=== PATIENT | female | born 1990 | race Caucasian/White ===

== ENCOUNTER → 2016-03-09 | Outpatient (CLI) | payer OTHER ==
[~2016-03-09] MED LIST: AZIT250T3 PO; CALNTAB PO; IBUP-232 PO; PREN1MIS11 PO; SENN1TAB PO; SPRI28TA PO
== END ==
LOC: CLAB 12:31
DX: O36.0130 Maternal care for anti-D [Rh] antibodies, third trimester, not applicable or unspecified (principal)
CPT/HCPCS: 36415; 86850; 86900; 86901; 90384; 96372; J2790

== ENCOUNTER 2016-03-16 08:06 | Emergency (ER) | payer OTHER ==
[~2016-03-16 08:06] MED LIST changes: -AZIT250T3 PO; -CALNTAB PO; -IBUP-232 PO; -SENN1TAB PO; -SPRI28TA PO
[2016-03-16 08:56] LABS: BACTERIA, URINE MOD /hpf; BLOOD, URINE NEG (NEG); GLUCOSE,URINE NEG (NEG); KETONE, URINE NEG (NEG); NITRITE,URINE NEG (NEG); SQUAMOUS EPITHELIAL CELL URINE 9 /hpf (0-5); URINE COLOR LIGHT-YELLOW (YELLW/STRAW)
[2016-03-16 08:57] LABS: COMMENT (UR) CULTURE INDICATED; CULTURE IF INDICATED CULTURE INDICATED
--- NOTE | 2016-03-16 09:22 | PD ---
HPI Chief Complaint Lower abdominal pain Date Seen: Mar 16, 2016 Time Seen: 09:16 Travel History International Travel<30 Days: No Contact w/Intl Traveler<30Days: No Known Affected Area: No History of Present Illness HPI The patient is a 25-year-old 4 para 2 AB 1 at 31-6/7 weeks gestation who reports having pain in the lower abdomen since about 2 AM. She states that the pain occurs about every 30 minutes and lasts for less than 1 minute. It does not feel like contractions. She also notes some urinary frequency without dysuria or hematuria. She denies any bleeding, rupture membranes or vaginal discharge. She feels like the pain is worse with pressure in this area or straining to have a bowel movement. Para: 2 : 4 Miscarriage: 1 History Past Medical History Medical History: Denies Significant Hx Obstetric History Obstetric History 2 term vaginal deliveries One miscarriage She [facility] care [facility] Past Surgical History Narrative Surgical Knee surgery Family History Family History: Negative Social History Alcohol Use: No Tobacco Use: Yes (smokes one half pack per day which is decreased from 2 packs per day prior to ) Substance Abuse: No Allergies-Medications (Allergen,Severity, Reaction): Coded Allergies: Penicillin (Verified Allergy, Severe, TONGUE SWELLS, 03/09/16) Home Meds Reported Medications W/O Vit A W/ Fe Carbo Pack (Citranatal 90 Dha Pack)90-1 & 300 Mg Pack1 Ea PO DAILY #6 BLISTER Ref 0 30 day supply. 01/13/16 Review of Systems Except as stated in HPI: all other systems reviewed are Neg Physical Exam Narrative GENERAL: Well-nourished, well-developed patient. SKIN: Warm and dry. HEAD: Normocephalic and atraumatic. EYES: No scleral icterus. No injection or drainage. ENT: No nasal drainage noted. Mucous membranes pink. Airway patent. NECK: Supple, trachea midline. No JVD. CARDIOVASCULAR: Regular rate and rhythm without murmurs, gallops, or rubs. RESPIRATORY: Breath sounds equal bilaterally. No accessory muscle use. ABDOMEN/GI: Abdomen soft, non-tender, bowel sounds present, no rebound, no guarding Gravid to [-] weeks size Fundal Height: [-] GENITOURINARY: External Genitalia: intact and normal in appearance BUS glands: [-] Cervix: [-] Dilatation: [-] Effacement: [-] Station: [-] Presentation: [-] Membranes: [intact or ruptured] Uterine Contractions: [-] FHT's: Category: [-] Baseline: [-] Reactive: [-] Variability: [-] Decels: [-] EXTREMITIES: No cyanosis or edema. BACK: Nontender without obvious deformity. No CVA tenderness. NEUROLOGICAL: Awake and alert. Motor and sensory grossly within normal limits. Five out of 5 muscle strength in all muscle groups. Normal speech. Data Data Vital Signs Reviewed: Yes Orders Vital Signs (Adult) .ON ADMISSION (03/16/16 08:36) ^ Labor Status (03/16/16 08:36) Urinalysis - C+S If Indicated (03/16/16 08:36) Urine Culture (03/16/16 08:15) Labs Laboratory Tests Test 03/16/16 08:15 Urine Color LIGHT-YELLOW Urine Turbidity HAZY Urine pH 7.0 Urine Specific Nora 1.002 Urine Protein NEG Urine Glucose (UA) NEG Urine Ketones NEG Urine Occult Blood NEG Urine Nitrite NEG Urine Bilirubin NEG Urine Urobilinogen LESS THAN 2.0 Urine Leukocyte Esterase NEG Urine RBC 1 Urine WBC 1 Urine Squamous Epithelial 9 Cells Urine Bacteria MOD Microscopic Urinalysis Comment CULTURE INDICATED Date/Time Procedure Status Source Growth 03/16/16 08:15 Urine Culture Received Urine Clean Catch Pending MDM Medical Record Reviewed: Yes Diagnosis Diagnosis: Primary Impression: 31 weeks gestation of Additional Impression: Urinary frequency Disposition: 01 DISCHARGE HOME Patient Instructions: General Instructions, Early Labor Signs (ED), Labor (ED), Movement (ED) Additional Instructions: keep next scheduled appointment Departure Forms: Tests/Procedures Trevor Malcolm MD Mar 16, 2016 09:22
[2016-06-16] MEDS ORDERED: SPRI28TA PO (09:24)
== END 2016-03-16 09:30 | disposition home or self-care (01) ==
LOC: HOBED 08:06
DX: O26.893 Other specified pregnancy related conditions, third trimester (principal); R35.0 Frequency of micturition; R10.30 Lower abdominal pain, unspecified; F17.200 Nicotine dependence, unspecified, uncomplicated; Z3A.31 31 weeks gestation of pregnancy
CPT/HCPCS: 59025; 81001; 87086

== ENCOUNTER 2016-04-05 15:55 | Emergency (ER) | payer OTHER ==
[~2016-04-05] VITALS: Ht 149.9 cm; Wt 84.0 kg
[2016-04-05 15:57] VITALS: BP 119/71; PULSE 89; RESP 15; TEMP 98.7; O2SAT 97
[2016-04-05] MEDS ORDERED: AZIT250T3 PO (16:46)
--- NOTE | 2016-04-05 16:50 | PD ---
HPI Chief Complaint: ENT Complaint Time Seen by Provider: 16:48 Travel History International Travel<30 days: No Contact w/Intl Traveler<30days: No Traveled to known affect area: No History of Present Illness HPI 26-year-old 34 week female presents to the emergency room for evaluation of right ear pain that started yesterday. She denies drainage but reports fullness and decreased hearing. Denies associated upper respiratory symptoms. Denies fever, chills, nausea, vomiting. Patient reports normal movement and denies vaginal discharge or bleeding. She reports anaphylactic reaction to penicillin. PFSH Past Medical History Autoimmune Disease: No Blood Disorders: No Anxiety: No Depression: No Cardiovascular Problems: No Diminished Hearing: No Genitourinary: No Musculoskeletal: No Neurologic: No Psychiatric: No Respiratory: No Sickle Cell Disease: No ?: LMP: 07/2015 : 3 Para: 2 Past Surgical History Abdominal Surgery: No Cardiac Surgery: No Ear Surgery: No Endocrine Surgery: No Eye Surgery: No Genitourinary Surgery: No Gynecologic Surgery: No Neurologic Surgery: No Oral Surgery: No Thoracic Surgery: No Other Surgery: Yes Social History Alcohol Use: No Tobacco Use: Yes Substance Use: No Allergies-Medications (Allergen,Severity, Reaction): Coded Allergies: Penicillin (Verified Allergy, Severe, TONGUE SWELLS, 04/05/16) Reported Meds & Prescriptions Reported Meds & Active Scripts Active Azithromycin 250 Mg Tab 250 Mg PO DIRECTED Take 2 tabs (500 mg) on day 1 then 1 tab daily x 4 days. Reported Citranatal 90 Dha Pack ( W/O Vit A W/ Fe Carbo Pack) 90-1 & 300 Mg Pack 1 Ea PO DAILY 30 day supply. Review of Systems Except as stated in HPI: all other systems reviewed are Neg Physical Exam Narrative GENERAL: Well-nourished, well-developed female in no acute distress. Afebrile. Ambulatory. SKIN: Warm and dry. HEAD: Normocephalic. EYES: No scleral icterus. No injection or drainage. EARS: Bilateral pinnae and external canals appear within normal limits. Left tympanic membrane unremarkable. Right tympanic membrane is erythematous, dull, bulging. No perforation. NECK: Supple, trachea midline. No JVD or lymphadenopathy. CARDIOVASCULAR: Regular rate and rhythm without murmurs, gallops, or rubs. RESPIRATORY: Breath sounds equal bilaterally. No accessory muscle use. Data Data Last Documented VS Vital Signs Date Time Temp Pulse Resp B/P Pulse Ox O2 Delivery O2 Flow Rate FiO2 04/05/16 15:57 98.7 89 15 119/71 97 MDM Medical Decision Making Medical Screen Exam Complete: Yes Emergency Medical Condition: Yes Medical Record Reviewed: Yes Differential Diagnosis Otitis media versus eustachian tube dysfunction versus cerumen impaction Narrative Course 26-year-old female presents to the emergency room for evaluation of right ear pain that started yesterday. No history of fever. She is afebrile and well appearing in the emergency room. Resting comfortably in bed. Physical exam reveals extreme erythema, dullness, and obvious effusion of the right tympanic membrane. No perforation or drainage. Left tympanic membrane is unremarkable. No associated upper respiratory symptoms. This is otitis media. Patient will be discharged with azithromycin and told to follow up with a primary care physician or return to the emergency room for worsening symptoms. She understands and agrees to plan. Diagnosis Primary Impression: Otitis media Qualified Code: H66.001 - Acute suppurative otitis media of right ear without spontaneous rupture of tympanic membrane, recurrence not specified Referrals: Primary Care Physician Patient Instructions: General Instructions, Otitis Media (ED) Additional Instructions: Rest and drink plenty of fluids. Take Azithromycin as directed, until gone. Follow-up with PCP. Return for worsening symptoms. Med/Other Pt SpecificInfo: Prescription(s) given Scripts Azithromycin 250 Mg [id number] Mg PO DIRECTED #6 TAB Ref 0 Take 2 tabs (500 mg) on day 1 then 1 tab daily x 4 days. Prov:Eric Bourgeois MD 04/05/16 Disposition: 01 DISCHARGE HOME Condition: Stable Janay Garland Apr 05, 2016 16:50
[2016-04-05] MEDS ORDERED: CALNTAB PO (16:56)
[2016-06-16] MEDS ORDERED: SPRI28TA PO (09:24)
== END 2016-04-05 17:23 | disposition home or self-care (01) ==
LOC: NEPB 15:55
DX: O26.893 Other specified pregnancy related conditions, third trimester (principal); H66.91 Otitis media, unspecified, right ear; Z72.0 Tobacco use; Z3A.34 34 weeks gestation of pregnancy
CPT/HCPCS: 99282

== ENCOUNTER 2016-04-29 03:51 | Emergency (ER) | payer OTHER ==
[~2016-04-29 03:51] MED LIST changes: +CALNTAB PO; -PREN1MIS11 PO
--- NOTE | 2016-04-29 05:08 | PD ---
HPI Chief Complaint Contraction pain Date Seen: Apr 29, 2016 Travel History International Travel<30 Days: No Contact w/Intl Traveler<30Days: No Known Affected Area: No History of Present Illness HPI Patient is 26-year-old white female A1 at 38 weeks followed for [facility] who presents complaining of contraction pain. She was also uncertain of her water leakage or not she coughed and had some wet underclothes and wasn't sure what was happening there, denies bleeding, baby is active heart rate tracing is reactive and she is royce every 3-4 minutes Para: 2 : 4 Miscarriage: 1 History Obstetric History Obstetric History 2 vaginal deliveries Social History Alcohol Use: No Tobacco Use: No Substance Abuse: No Allergies-Medications (Allergen,Severity, Reaction): Coded Allergies: Penicillin (Verified Allergy, Severe, TONGUE SWELLS, 04/27/16) Home Meds Reported Medications Vitamin (Calna)1 Tab Tab1 Tab PO DAILY 04/05/16 Review of Systems General / Constitutional: No: Fever, Weight Gain, Chills, Other Eyes: No: Diploplia, Blurred Vision, Visual changes, Pain, Photophobia HENT: No: Headaches, Vertigo, Lightheadedness Cardiovascular: No: Irregular Rhythm, Chest Pain or Discomfort, Palpitations, Tachycardia, Syncope, Varicosities, Edema, Cyanosis Respiratory: No: Cough, Short of Breath, Other Gastrointestinal: No: Nausea, Vomiting, Diarrhea Genitourinary: No: Decreased Urinary Output, Oliguria Musculoskeletal: No: Limited ROM, Weakness, Cramping, Edema, Pain Skin: No Rash, No Itching, No Dryness, No Lumps, No Change in Pigmentation, No Change in Nails, No Alopecia, No Lesions Neurologic: No: Weakness, Dizziness, Syncope, Focal Abnormalities, Coordination Problem, Headache, Slurred Speech, Seizures Psychiatric: No: Depression, Suicidal Ideations, Homicidal Ideation Endocrine: No: Heat Intolerance, Cold Intolerance, Polydipsia, Polyuria, Other Physical Exam Narrative GENERAL: Well-nourished, well-developed patient. SKIN: Warm and dry. HEAD: Normocephalic and atraumatic. EYES: No scleral icterus. No injection or drainage. ENT: No nasal drainage noted. Mucous membranes pink. Airway patent. NECK: Supple, trachea midline. No JVD. CARDIOVASCULAR: Regular rate and rhythm without murmurs, gallops, or rubs. RESPIRATORY: Breath sounds equal bilaterally. No accessory muscle use. BREASTS: Bilateral exam showed no masses , no retractions, no nipple discharge. ABDOMEN/GI: Abdomen soft, non-tender, bowel sounds present, no rebound, no guarding Gravid to [38-] weeks size Fundal Height: [-38] GENITOURINARY: External Genitalia: intact and normal in appearance BUS glands: [-] Cervix: [-] Dilatation: [1-] Effacement: [60-] Station: [-2] Presentation: [-vtx] Membranes: [intact ] amnio sure is negative Uterine Contractions: [-q 3 min] FHT's: Category: [-1] Baseline: [110-] Reactive: [yes-] Variability: [mod-] Decels: [-none] EXTREMITIES: No cyanosis or edema. BACK: Nontender without obvious deformity. No CVA tenderness. NEUROLOGICAL: Awake and alert. Motor and sensory grossly within normal limits. Five out of 5 muscle strength in all muscle groups. Normal speech. Data Data Labs Amnio sure negative History of positive VDRL in her records and she is GBS positive MDM Medical Record Reviewed: Yes Interpretation(s) Patient is a 26-year-old white female at 38 weeks presents complaining of contraction pain. She is royce every 3-4 minutes her cervix is only 1 cm 60% -2, she had a negative amnio sure even though it looked like she had a lot of wetness in the lower vagina. The heart rate is reactive Plan Plan to discharge patient to home and return for increasing pain or further fluid leakage or bleeding, etc. Diagnosis Diagnosis: Primary Impression: Uterine contractions during Disposition: DISCHARGE HOME Condition: Stable Joel Anna II, MD Apr 29, 2016 05:08
[2016-06-16] MEDS ORDERED: SPRI28TA PO (09:24)
== END 2016-04-29 07:00 | disposition home or self-care (01) ==
LOC: HOBED 03:51
DX: O26.93 Pregnancy related conditions, unspecified, third trimester (principal); Z3A.38 38 weeks gestation of pregnancy
CPT/HCPCS: 84112; 96372; J3010

== ENCOUNTER 2016-04-29 23:18 | Inpatient (IN) | payer OTHER ==
[~2016-04-29] VITALS: Ht 149.9 cm; Wt 83.0 kg
[2016-04-30] VITALS (44 sets, daily range): BP systolic 74–133; BP diastolic 36–72; PULSE 74–214; RESP 16–18; TEMP 97.9–98.9
[2016-04-30] MEDS ORDERED: LACTATED RINGER'S 1000 ML INJ 1,000 ML IV PRN (00:33)
[2016-04-30] MEDS ORDERED: LACTATED RINGER'S 1000 ML INJ 1,000 ML IV SCH (00:33)
[2016-04-30] MEDS ORDERED: SODIUM CHLORID 0.9% 500 ML INJ 500 ML IV PRN (00:45)
[2016-04-30] MEDS ORDERED: MINERAL OIL 10 ML VIAL TOPICAL PRN (00:45)
[2016-04-30] MEDS ORDERED: OXYTOCIN 30 UNITS-500ML PREMIX 500 ML IV ONE (00:45)
[2016-04-30] MEDS ORDERED: LIDOCAINE HCL 1% 50 ML VIAL I-DERMAL PRN (00:45)
[2016-04-30] MEDS ORDERED: LIDOCAINE HCL 1% 50 ML VIAL INFIL PRN (00:45)
[2016-04-30] MEDS ORDERED: CITRIC ACID-SODIUM CITRATE LIQ 30 ML UDC PO SCH (00:45)
[2016-04-30] MEDS ORDERED: SODIUM CHLOR 0.9% 1000 ML INJ 1,000 ML IV PRN (00:53)
--- NOTE | 2016-04-30 00:59 | HHI.HP ---
History & Physical H&P OB ED Note (Detail) Patient Name: Saurav Lopez Unit Number: [id number] Date of : 1990 Patient Status: Registered Emergency Room Attending Doctor: Sandra Thomas MD HPI HPI Chief Complaint contractions Date Seen: Apr 30, 2016 Travel History International Travel<30 Days: No Contact w/Intl Traveler<30Days: No History of Present Illness HPI Mrs. Lopez is a 26 yo 38 2/7 week patient of [facility] who presents complaining of contractions. She reports the contractions began approximately 30 hours ago; patient reports that these have gradually increased in severity. Patient was seen approximately 1 day ago for contractions, however was discharged home due to being in early, latent phase labor. Patient does not think that she has ruptured membranes, but states that she's been urinating frequently. Patient denies vaginal bleeding. Patient reports normal movement. Patient does not report headache, vision changes, shortness of breath, leg swelling, fever/chills, or dysuria. Patient reports that she is GBS positive; patient reports severe penicillin allergy in which her throat swells. Patient states that she has had unremarkable history with reassuring ultrasound at approximately 20 weeks gestation. Per review of records from [facility]: RPR positive 10/01/2016, treated. Patient had elevated 1 hour glucose testing but did not obtain 3 hour testing. . Initial TSH 0.24; follow-up TSH/free T4 wnl. Blood type O negative. Smokes 1/2 PPD Para: 2 : 4 History (Limited) History Past Medical History Narrative Medical Positive VDRL per report from [facility] 10/01/2016; treated Medical History: Denies Significant Hx Obstetric History Obstetric History 2 prior full-term vaginal deliveries Past Surgical History Surgical History: No Previous Surgery Family History Family History: Negative Social History Alcohol Use: No Tobacco Use: 1/2 ppd Substance Abuse: No Allergies-Medications Allergies-Medications (Allergen,Severity, Reaction): Coded Allergies: Penicillin (Verified Allergy, Severe, TONGUE SWELLS, 04/27/16) Home Meds Reported Medications Vitamin (Calna)1 Tab Tab1 Tab PO DAILY 04/05/16 ROS Review of Systems General / Constitutional: No: Fever, Chills Eyes: No: Blurred Vision HENT: No: Headaches Cardiovascular: No: Chest Pain or Discomfort Respiratory: No: Short of Breath Gastrointestinal: Abdominal Pain (with contractions), No: Nausea, Vomiting Genitourinary: Frequency, No: Dysuria Physical Exam Physical Exam Temperature 98.0 F Respiratory rate 20 MHR 102 BP 121/72 Narrative GENERAL: Well-nourished, well-developed patient. SKIN: Warm and dry. HEAD: Normocephalic and atraumatic. EYES: No scleral icterus. No injection or drainage. ENT: No nasal drainage noted. Mucous membranes pink. Airway patent. NECK: Supple, trachea midline. No JVD. CARDIOVASCULAR: Regular rate and rhythm without murmurs; normal peripheral perfusion RESPIRATORY: Breath sounds equal bilaterally. No accessory muscle use. ABDOMEN/GI: Abdomen soft, non-tender, bowel sounds present, no rebound, no guarding Gravid; vertex presentation EXTREMITIES: No cyanosis or edema. NEUROLOGICAL: Awake and alert. Motor and sensory function grossly within normal limits. GENITOURINARY: Performed by nursing staff External Genitalia: intact and normal in appearance Cervix: Dilatation: 5 Effacement: 80% Station: -2 Presentation: Vertex Membranes: Intact Uterine Contractions: Every 35 minutes FHT's: Category: 1 Baseline: 120 Reactive: Y Variability: Moderate Decels: None Data Data Data Vital Signs Reviewed: Yes Orders Admit To Inpatient (04/30/16 ) Vital Signs (Adult) .Per protocol (04/30/16 00:33) ^ Heart (04/30/16 00:33) ^ Amnioinfusion (04/30/16 00:33) Urinary Catheter Management .ONCE (04/30/16 00:33) Lactated Ringer's 1000 Ml Inj (Lr 1000 M (04/30/16 00:33) Lactated Ringer's 1000 Ml Inj (Lr 1000 M (04/30/16 00:33) Sodium Chlorid 0.9% 500 Ml Inj (Ns 500 M (04/30/16 00:45) Sodium Chlor 0.9% 1000 Ml Inj (Ns 1000 M (04/30/16 00:53) Lidocaine 1% Inj (50 Ml) (Xylocaine 1% I (04/30/16 00:45) Citric Acid-Sodium Citrate Liq (Bicitra (04/30/16 00:45) Fentanyl Inj (Fentanyl Inj) (04/30/16 00:45) Fentanyl Inj (Fentanyl Inj) (04/30/16 00:45) Clindamycin Inj (Cleocin Inj) (04/30/16 02:45) Complete Blood Count With Diff (04/30/16 00:33) Hold Clot (04/30/16 00:33) Abo/Rh Blood Type (04/30/16 00:33) Urinalysis - C+S If Indicated (04/30/16 00:33) Resp Oxygen Non Rebreathe Mask (04/30/16 ) ^ Epidural / Intrathecal Infus (04/30/16 00:33) Oxytocin 30 Units-500ml Premix (Pitocin (04/30/16 00:45) Lidocaine 1% Inj (50 Ml) (Xylocaine 1% I (04/30/16 00:45) Light Mineral Oil (Muri-Lube Oil) (04/30/16 00:45) Inpatient Certification (04/30/16 ) MDM MDM Medical Record Reviewed: Yes Narrative Course / MDM 26 yo 38 2/7 week patient Assessment -Category 1 rhythm -Cervix 5/80%/-2 -GBS positive; allergic to penicillin -O- blood type -Requests epidural Plan Admit for labor and delivery Continue EFM Start LR Routine labs: blood typing, UA Plan for epidural Clindamycin for GBS PPX Will check RPR titers (Diego Jara MD R2) H&P I rounded on the patient. I rounded with the resident. I reviewed the resident' s assessment and plan of care for this patient. I am in agreement with the plan of care for this patient. (Sandra Thomas MD) Diego Jara MD R2 Apr 30, 2016 00:59 Sandra Thomas MD Apr 30, 2016 10:23
[2016-04-30] MEDS ORDERED: fentaNYL 2MCG-BUPIV 0.125% INJ 100 ML ONE (01:03)
[2016-04-30] MEDS ORDERED: ePHEDrine/NS 25 MG/5 ML SYR ONE (01:03)
[2016-04-30 01:13] LABS: AUTOMATED NEUTROPHIL # 17.7 TH/MM3 (1.8-7.7); BASOPHIL # 0.1 TH/MM3 (0-0.2); BASOPHIL % 0.3 % (0.0-2.0); EOSINOPHIL # 0.3 TH/MM3 (0-0.4); EOSINOPHIL % 1.3 % (0.0-4.0); HEMATOCRIT 33.2 % (35.0-46.0); HEMO FLAGS DIFF FINAL; LYMPHOCYTE # 2.9 TH/MM3 (1.0-4.8); MEAN CELL VOLUME 87.1 FL (80.0-100.0); MEAN CORPUSCULAR HEMOGLOBIN 28.7 PG (27.0-34.0); MEAN CORPUSCULAR HGB CONC 32.9 % (32.0-36.0); MONO % 5.9 % (0.0-8.0); NEUT % 79.5 % (16.0-70.0); PLATELET COUNT 317 TH/MM3 (150-450); RED BLOOD COUNT 3.81 MIL/MM3 (4.00-5.30); RED CELL DISTRIBUTION WIDTH 15.5 % (11.6-17.2); WHITE BLOOD COUNT 22.3 TH/MM3 (4.0-11.0)
[2016-04-30 02:05] LABS: BACTERIA, URINE RARE /hpf; BLOOD, URINE SMALL (NEG); GLUCOSE,URINE NEG (NEG); KETONE, URINE 150 mg/dL (NEG); MUCUS URINE FEW /lpf (OCC); NITRITE,URINE NEG (NEG); PH, URINE 6.5 (5.0-8.5); RENAL EPITHELIAL CELLS <1 /hpf; SQUAMOUS EPITHELIAL CELL URINE 6 /hpf (0-5); TRANSITIONAL EPI CELLS, URINE <1 /hpf; URINE COLOR YELLOW (YELLW/STRAW)
[2016-04-30 02:06] LABS: COMMENT (UR) CULTURE INDICATED; CULTURE IF INDICATED CULTURE INDICATED
[2016-04-30] MEDS ORDERED: ePHEDrine/NS 25 MG/5 ML SYR IV PRN (02:30)
[2016-04-30] MEDS ORDERED: CLINDAMYCIN INJ 900 MG in SODIUM CHLORIDE 0.9% INJ 100 ML IV SCH (02:45)
[2016-04-30] MEDS ORDERED: NO SYSTEM NARCOTICS XX PRN (03:00)
[2016-04-30] MEDS ORDERED: fentaNYL 2MCG-BUPIV 0.125% 100 ML EPIDURAL SCH (03:00)
[2016-04-30] MEDS ORDERED: DO NOT ADMINISTER ANTICOAGULANTS XX PRN (03:00)
[2016-04-30 03:05] LABS: AMPHETAMINE, URINE NEG (NEG); BARBITURATES, URINE NEG (NEG); COCAINE, URINE NEG (NEG)
[2016-04-30] MEDS ORDERED: ALUMINUM/MAGNESIUM/SIMETH 30 ML CUP PO PRN (03:30)
[2016-04-30] MEDS ORDERED: ZOLPIDEM TARTRATE 5 MG TAB PO PRN (03:30)
[2016-04-30] MEDS ORDERED: BENZOCAINE 20% TOPICAL SPRAY 60 ML CAN TOPICAL PRN (03:30)
[2016-04-30] MEDS ORDERED: ACETAMINOPHEN 325 MG TAB PO PRN (03:30)
[2016-04-30] MEDS ORDERED: ONDANSETRON ODT 4 MG TAB PO PRN (03:30)
[2016-04-30] MEDS ORDERED: SODIUM CHLORIDE 0.9% FLUSH 5 ML FLUSH IV PRN (03:30)
[2016-04-30] MEDS ORDERED: oxyCODONE/ACETAMINOPHEN 5 MG/325 MG TAB PO PRN (03:30)
[2016-04-30] MEDS ORDERED: WITCH HAZEL 50%/GLYCERIN 12.5% 40 PAD JAR TOPICAL PRN (03:30)
--- NOTE | 2016-04-30 04:08 | PD.OB.DELI ---
Delivery Date: Apr 30, 2016 Episiotomy: None Vaginal Delivery: Normal Presentation: Occiput anterior Nuchal Cord: x1 Delayed cord clamping (45 sec): No Infant: Male One Minute : 1 Five Minute : 6 Weight: [id number] Infant Care: Suctioned, Other Placenta: Spontaneous delivery, Intact, 3 vessel cord Additional Information heart tones with moderate variability and positive accelerations after placement of the epidural the patient underwent artificial rupture of membranes however there was minimal fluid and no meconium was seen. The patient progressed to 9 cm with a lot of pressure and pushing the patient delivered. At the time of delivery there was a moderately tight nuchal cord and meconium fluid seen behind the baby unable to push the cord over the head however it slipped over the shoulder and the baby spontaneously delivered no stimulation was done as the baby was meconium stained segment of cord was obtained for a cord pH the cord was then doubly clamped and cut and the infant rapidly handed over to the waiting nursery staff. Unable to obtain adequate pH from the segment of cord Placenta delivered spontaneously and intact and the membranes were green it was sent to pathology for evaluation. No lacerations Estimated blood loss less than 300 cc Uterus was firm Nursing staff did visualize the cords and no meconium was seen below the cords. Baby is presently pink active and is staying with the mother has not been transferred to the NICU Sandra Thomas MD Apr 30, 2016 04:08
[2016-04-30] MEDS ORDERED: SODIUM CHLORIDE 0.9% FLUSH 5 ML FLUSH IV SCH (09:00)
[2016-04-30] MEDS: IBUPROFEN 600 MG TAB PO PRN ×3 (10:05→23:07)
[2016-04-30 13:17] LABS: RAPID PLASMA REAGIN SCREEN REACTIVE (NON-REACTVE)
--- NOTE | 2016-04-30 15:34 | HHI.OB ---
Subjective Remarks 26 year old PPD 0 after vaginal delivery early this morning. Received call from nurse alerting me about positive RPR result both in mom and in baby. RPR titer is 1:8. She tested positive for RPR, along with her significant other , in September 2015 (1:64 at that time) with [facility]. She was given a 14 day course of Doxycycline at that time. She missed two days of dosing but resumed dosing and completed the course. Her significant other also was treated with penicillin. She is sexually monogamous with her significant other, but does not use protection. She has not had any symptoms of syphilis, including no generalized rash, mucosal or vaginal ulcers, gummas, neurological symptoms, etc. Regarding post- care, she has minimal lochia, is ambulating, pain is well controlled, and she intends to breastfeed. Objective Vitals/I&O Vital Signs Date Time Temp Pulse Resp B/P Pulse Ox O2 Delivery O2 Flow Rate FiO2 04/30/16 08:05 97.9 16 04/30/16 08:05 77 105/68 04/30/16 06:37 98.6 77 18 104/57 04/30/16 05:45 18 04/30/16 05:00 18 04/30/16 04:46 80 109/52 04/30/16 04:45 18 04/30/16 04:30 18 04/30/16 04:30 80 108/50 04/30/16 04:15 74 99/56 04/30/16 04:11 99 96/67 04/30/16 04:08 18 04/30/16 04:00 18 04/30/16 04:00 77 74/39 04/30/16 03:49 162 75/36 04/30/16 03:46 106 90/38 04/30/16 03:42 18 04/30/16 03:31 114 88/57 04/30/16 03:24 18 04/30/16 03:24 18 04/30/16 03:15 18 04/30/16 03:15 100 110/53 04/30/16 03:00 18 04/30/16 03:00 18 04/30/16 02:50 95 04/30/16 02:50 95 04/30/16 02:46 90 111/67 04/30/16 02:45 83 04/30/16 02:30 18 04/30/16 02:26 104 83/53 04/30/16 02:25 91 04/30/16 02:21 112 119/64 04/30/16 02:20 107 04/30/16 02:16 93 103/46 04/30/16 02:15 88 04/30/16 02:14 18 04/30/16 02:11 214 97/59 04/30/16 02:10 99 04/30/16 02:05 100 105/65 04/30/16 02:05 97 04/30/16 02:00 95 18 113/62 04/30/16 02:00 95 04/30/16 01:55 98 109/64 04/30/16 01:55 101 04/30/16 01:50 87 04/30/16 01:50 96 109/51 04/30/16 01:45 90 04/30/16 01:45 90 116/61 04/30/16 01:43 18 04/30/16 01:40 101 115/65 04/30/16 01:40 101 04/30/16 01:36 95 114/69 04/30/16 01:35 101 04/30/16 01:32 103 133/40 04/30/16 01:30 104 04/30/16 01:30 18 04/30/16 01:27 99 128/72 Objective Remarks GENERAL: Resting in bed HEENT: No oral ulcers Skin: No generalized rashes, no rashes on the palms or soles CARDIOVASCULAR: Regular rate and rhythm without murmurs, gallops, or rubs. RESPIRATORY: Breath sounds equal bilaterally. No accessory muscle use. ABDOMEN/GI: Abdomen soft, non-tender. Fundus: Firm, non-tender at umbilicus. GENITOURINARY: Light to moderate bleeding. No genital ulcers EXTREMITIES: No cyanosis or edema, non-tender, without signs of DVT. Medications and IVs Current Medications Medications (Trade) Dose Ordered Sig/Prasanth Route Start Time Stop Time Status Last Admin (Cleocin Inj/NS Inj) 106 ml @ 200 mls/hr Q8H IV 04/30/16 02:45 04/30/16 02:25 Miscellaneous Information No systemic narcotics to be given except... UNSCH PRN XX 04/30/16 03:00 05/01/16 02:59 Miscellaneous Information DO NOT ADMINISTER ANY ANTICOAGUL... UNSCH PRN XX 04/30/16 03:00 05/01/16 02:59 (fentaNYL 2MCG-BUPIV 0.125% INJ) 100 ml @ 0 mls/hr TITRATE EPIDURAL 04/30/16 03:00 (ePHEDrine/NS 25 MG/5 ML SYR) 10 mg UNSCH PRN IV 04/30/16 02:30 05/01/16 02:29 (NS Flush) 2 ml BID IV 04/30/16 09:00 (NS Flush) 2 ml UNSCH PRN IV 04/30/16 03:30 (Tylenol) 650 mg Q4H PRN PO 04/30/16 03:30 (Motrin) 600 mg Q6H PRN PO 04/30/16 03:30 04/30/16 10:05 (Percocet 5-325 Mg) 1 tab Q4H PRN PO 04/30/16 03:30 (Percocet 5-325 Mg) 2 tab Q4H PRN PO 04/30/16 03:30 (Americaine 20% Top Spr) 1 spray Q4H PRN TOPICAL 04/30/16 03:30 (Tucks Pads) 1 applic QID PRN TOPICAL 04/30/16 03:30 (Fiona-Colace) 2 tab Q12H PRN PO 04/30/16 03:30 (Ambien) 5 mg HS PRN PO 04/30/16 03:30 (M-M-R Ii Inj) 0.5 ml ONCE ONCE SQ 04/30/16 16:00 04/30/16 16:01 (Boostrix Inj) 0.5 ml ONCE ONCE IM 04/30/16 16:00 04/30/16 16:01 (Mag-Al Plus Susp Liq) 15 ml Q8H PRN PO 04/30/16 03:30 (Zofran Odt) 4 mg Q6H PRN PO 04/30/16 03:30 (Vibramycin) 100 mg BID PO 04/30/16 16:00 Assessment/Plan Assessment and Plan 26 year old PPD 0 after vaginal delivery early this morning, with positive RPR and titer of 1:8. RPR was 1:16 in December, and 1:64 in September 2015 with positive FTA-ABS at that time. HIV test negative in November 2015. - Because the titers are more than fourfold decreased since her treatment with Doxycycline back in September 2015 (confirmed [facility] to [facility]), and because she is asymptomatic, there is no indication for treatment. - Regarding post- care, continue with Ibuprofen for pain control, monitor amount of lochia, savings counselor on control options. Discussed with Sandro Sanchez MD R2 Apr 30, 2016 15:34 - Doxycycline poses a theoretical risk to teeth development for baby through . However, there is no absolute contraindication to while on doxycycline and benefits of may outweigh the risks. Will defer to pediatric team on . - Regarding post- care, continue with Ibuprofen for pain control, monitor amount of lochia, savings counselor on control options. Discussed with Sandro Sanchez MD R2 Apr 30, 2016 15:34
[2016-04-30] MEDS ORDERED: DOXYCYCLINE HYCLATE 100 MG CAP PO SCH (16:00)
[2016-04-30] MEDS: MEASLES, MUMPS, RUBELLA VACCINE 0.5 ML VIAL SQ ONE (16:00)
[2016-04-30] MEDS ORDERED: DIPHTH/TETANUS/ACEL PERTUSSIS (BOOSTER) 0.5 ML VIAL/PFS IM ONE (16:00)
[2016-05-01] MEDS: DOCUSATE SODIUM 50 MG/SENNA 8.6 MG TAB PO PRN ×2 (03:45→18:10)
[2016-05-01] MEDS: IBUPROFEN 600 MG TAB PO PRN ×3 (03:45→18:10)
[2016-05-01] MEDS: oxyCODONE/ACETAMINOPHEN 5 MG/325 MG TAB PO PRN ×2 (03:45→10:51)
[2016-05-01] MEDS: MEASLES, MUMPS, RUBELLA VACCINE 0.5 ML VIAL SQ ONE (06:27)
[2016-05-01 08:30] VITALS: BP 114/55; PULSE 64; RESP 18; TEMP 98.2
--- NOTE | 2016-05-01 08:50 | HHI.OB ---
Subjective Remarks 26 year old PPD 1 after vaginal delivery early yesterday morning. She has minimal lochia. She is breast and formula feeding, encouraging exclusive . She is ambulating. She is uncertain about control, discussed options. She plans to follow up with [facility] for post- care. Pain is well-controlled. Objective Vitals/I&O Vital Signs Date Time Temp Pulse Resp B/P Pulse Ox O2 Delivery O2 Flow Rate FiO2 05/01/16 04:45 18 05/01/16 00:06 18 05/01/16 00:06 18 04/30/16 20:16 98.9 88 18 108/69 Objective Remarks GENERAL: Resting in bed HEENT: No oral ulcers Skin: No generalized rashes, no rashes on the palms or soles CARDIOVASCULAR: Regular rate and rhythm without murmurs, gallops, or rubs. RESPIRATORY: Breath sounds equal bilaterally. No accessory muscle use. ABDOMEN/GI: Abdomen soft, non-tender. Fundus: Firm, non-tender at umbilicus. GENITOURINARY: Light to moderate bleeding. No genital ulcers EXTREMITIES: No cyanosis or edema, non-tender, without signs of DVT. Medications and IVs Current Medications Medications (Trade) Dose Ordered Sig/Prasanth Route Start Time Stop Time Status Last Admin (fentaNYL 2MCG-BUPIV 0.125% INJ) 100 ml @ 0 mls/hr TITRATE EPIDURAL 04/30/16 03:00 (NS Flush) 2 ml BID IV 04/30/16 09:00 (NS Flush) 2 ml UNSCH PRN IV 04/30/16 03:30 (Tylenol) 650 mg Q4H PRN PO 04/30/16 03:30 04/30/16 23:06 (Motrin) 600 mg Q6H PRN PO 04/30/16 03:30 05/01/16 03:45 (Percocet 5-325 Mg) 1 tab Q4H PRN PO 04/30/16 03:30 05/01/16 03:45 (Percocet 5-325 Mg) 2 tab Q4H PRN PO 04/30/16 03:30 (Americaine 20% Top Spr) 1 spray Q4H PRN TOPICAL 04/30/16 03:30 (Tucks Pads) 1 applic QID PRN TOPICAL 04/30/16 03:30 (Fiona-Colace) 2 tab Q12H PRN PO 04/30/16 03:30 05/01/16 03:45 (Ambien) 5 mg HS PRN PO 04/30/16 03:30 (Mag-Al Plus Susp Liq) 15 ml Q8H PRN PO 04/30/16 03:30 (Zofran Odt) 4 mg Q6H PRN PO 04/30/16 03:30 (Flu (Quadrivalent) Vaccine Inj) 0.5 ml ONCE ONCE IM 05/01/16 09:00 05/01/16 09:01 05/01/16 06:25 Assessment/Plan Assessment and Plan 26 year old PPD 0 after vaginal delivery early this morning, with positive RPR and titer of 1:8. RPR was 1:16 in December, and 1:64 in September 2015 with positive FTA-ABS at that time. HIV test negative in November 2015. Regarding post- care, she is doing well. - Because the titers are more than fourfold decreased since her treatment with Doxycycline back in September 2015 (confirmed by call to the Health Department), and because she is asymptomatic, there is no indication for treatment. - Continue with Ibuprofen for pain control. - Monitor amount of lochia. 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 - Encourage exclusive . - Will follow with [facility] for post- care. Discussed with Sandro Sanchez MD R2 May 01, 2016 08:50
[2016-05-01] MEDS ORDERED: INFLUENZA VIRUS VACCINE (QUADRIVALENT) 0.5 ML SYR IM ONE (09:00)
[2016-05-01 20:00] VITALS: BP 103/63; PULSE 64; RESP 18; TEMP 98.1
[2016-05-02] MEDS: IBUPROFEN 600 MG TAB PO PRN ×2 (00:36→08:17)
[2016-05-02] MEDS: oxyCODONE/ACETAMINOPHEN 5 MG/325 MG TAB PO PRN ×2 (00:36→08:17)
[2016-05-02 08:00] VITALS: BP 119/75; PULSE 74; RESP 18; TEMP 98
--- NOTE | 2016-05-02 08:35 | PD.CIRC ---
Circumcision Procedure Note Procedure Date: May 02, 2016 Procedure: Circumcision Pre-procedure diagnosis: circumcision Post-procedure diagnosis: circumcision Informed Consent: The risks, benefits, indications, potential complications, and alternatives were explained to the patient/family and informed consent obtained. The baby was brought to the procedure room where a time-out was done to ID the patient and the procedure. Performing Physician: Sandra Portillo Anesthesia used: 1% lidocaine injected Device used: Gomco 1.3 Description: The baby was prepped and draped in a sterile fashion. The procedure followed standard technique. The baby tolerated the procedure well without complication. Estimated blood loss: minimal Specimen: No Sandra Thomas MD May 02, 2016 08:35
--- NOTE | 2016-05-02 09:03 | HHI.OB ---
Subjective Post Day: 2 Remarks Pt seen and examined this morning. day # 2 AFVSS overnight. Decreased lochia. Denies dysuria. No breast tenderness. She is feeding the baby via breast and bottle. Appetite good. No nausea or vomiting. Has had BM. Ambulating well. Denies calf pain or shortness of breath. Otherwise, she is doing well this morning and has no other concerns. Objective Vitals/I&O Vital Signs Date Time Temp Pulse Resp B/P Pulse Ox O2 Delivery O2 Flow Rate FiO2 05/01/16 20:00 98.1 64 18 103/63 Objective Remarks GENERAL: Resting in bed HEENT: No oral ulcers Skin: No generalized rashes, no rashes on the palms or soles CARDIOVASCULAR: Regular rate and rhythm without murmurs, gallops, or rubs. RESPIRATORY: Breath sounds equal bilaterally. No accessory muscle use. ABDOMEN/GI: Abdomen soft, non-tender. Fundus: Firm, non-tender at umbilicus. GENITOURINARY: Light to moderate bleeding. No genital ulcers EXTREMITIES: No cyanosis or edema, non-tender, without signs of DVT. Medications and IVs Current Medications Medications (Trade) Dose Ordered Sig/Prasanth Route Start Time Stop Time Status Last Admin (fentaNYL 2MCG-BUPIV 0.125% INJ) 100 ml @ 0 mls/hr TITRATE EPIDURAL 04/30/16 03:00 (NS Flush) 2 ml BID IV 04/30/16 09:00 (NS Flush) 2 ml UNSCH PRN IV 04/30/16 03:30 (Tylenol) 650 mg Q4H PRN PO 04/30/16 03:30 04/30/16 23:06 (Motrin) 600 mg Q6H PRN PO 04/30/16 03:30 05/02/16 08:17 (Percocet 5-325 Mg) 1 tab Q4H PRN PO 04/30/16 03:30 05/02/16 08:17 (Percocet 5-325 Mg) 2 tab Q4H PRN PO 04/30/16 03:30 05/01/16 18:10 (Americaine 20% Top Spr) 1 spray Q4H PRN TOPICAL 04/30/16 03:30 (Tucks Pads) 1 applic QID PRN TOPICAL 04/30/16 03:30 (Fiona-Colace) 2 tab Q12H PRN PO 04/30/16 03:30 05/01/16 18:10 (Ambien) 5 mg HS PRN PO 04/30/16 03:30 (Mag-Al Plus Susp Liq) 15 ml Q8H PRN PO 04/30/16 03:30 (Zofran Odt) 4 mg Q6H PRN PO 04/30/16 03:30 Assessment/Plan Assessment and Plan 26 year old PPD 2 s/p vaginal delivery. -Positive RPR, patient was adequately treated with doxycycline in 09/2015, confirmed by the health department. Currently asymptomatic. No indication for treatment at this time -Continue routine care. -Percocet and Motrin PRN pain. -Encouraged OOB. Advised pelvic rest for 6 wks. 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 -Anticipate discharge later today Discussed with Isha Bryant MD R2 May 02, 2016 09:03
[2016-05-02] MEDS ORDERED: IBUP-232 PO (09:11)
[2016-05-02] MEDS ORDERED: SENN1TAB PO (09:11)
--- NOTE | 2016-05-02 09:14 | HHI.DCPOC ---
Discharge Care Plan Diagnosis: (1) Vaginal delivery Report Symptoms to Your Doctor -Temperate above 100.5 degrees -Redness, of incision or excessive or foul smelling drainage -Unusual pain or calf pain -Increased vaginal bleeding -Painful or difficulty urinating -Feelings of extreme sadness or anxiety after 2 weeks Goals to Promote Your Health * To prevent worsening of your condition and complications * To maintain your health at the optimal level Directions to Meet Your Goals Take your medications as prescribed Follow your dietary instruction Follow activity as directed Ensure plenty of rest for recovery Drink fluids for hydration Keep your appointments as scheduled Take your immunizations and boosters as scheduled If your symptoms worsen call your PCP, if no PCP go to Urgent Care Center or Emergency Room Smoking is Dangerous to Your Health. Avoid second hand smoke Call the 24-hour crisis hotline for domestic abuse at Isha Moreno MD R2 May 02, 2016 09:14
[2016-05-07 13:42] LABS: BATH SALTS (MDPV) UR NEG (NEG); ECSTASY (MDMA) UR NEG (NEG); HEROIN (6-ACETYLMORPHINE) UR NEG (NEG); K2 SPICE UR NEG (NEG); OBMETHADONE UR NEG (NEG); OXYCODONE (PERCODAN) NEG (NEG); PHENCYCLIDINE URINE NEG (NEG)
[2016-06-16] MEDS ORDERED: SPRI28TA PO (09:24)
== END 2016-05-02 12:42 | disposition home or self-care (01) | DRG 775 ==
LOC: HOBED 23:18 → H2EA 04-30 00:40 → H1EA 04-30 05:56
PROVIDERS: ADMIT Obstetrics & Gynecology; ATTEND Obstetrics & Gynecology
PROC: 10E0XZZ Delivery of Products of Conception, External Approach (ICD-10-PCS; principal; 2016-04-30)
PROC: 10907ZC Drainage of Amniotic Fluid, Therapeutic from Products of Conception, Via Natural or Artificial Opening (ICD-10-PCS; 2016-04-30)
PROC: 3E0R3CZ (ICD-10-PCS; 2016-04-30)
PROC: 00HU33Z Insertion of Infusion Device into Spinal Canal, Percutaneous Approach (ICD-10-PCS; 2016-04-30)
DX: O69.1XX0 Labor and delivery complicated by cord around neck, with compression, not applicable or unspecified (principal); F17.210 Nicotine dependence, cigarettes, uncomplicated; Z37.0 Single live birth; O99.824 Streptococcus B carrier state complicating childbirth; O77.0 Labor and delivery complicated by meconium in amniotic fluid; O99.334 Smoking (tobacco) complicating childbirth; Z3A.38 38 weeks gestation of pregnancy
CPT/HCPCS: 80307; 81001; 84112; 85025; 86592; 86593; 86900; 86901; 87086; 88307; 90686; 90707; 90715; 99285; G0481; J3010; J7120; Q2038

== ENCOUNTER 2017-03-07 11:56 | Emergency (ER) | payer MEDICAID, OTHER ==
[~2017-03-07] VITALS: Ht 144.8 cm; Wt 81.5 kg
[~2017-03-07 11:56] MED LIST changes: -CALNTAB PO; +SPRI28TA PO
[2017-03-07 11:58] VITALS: BP 135/74; PULSE 87; RESP 16; TEMP 98.5; O2SAT 98
[2017-03-07] MEDS ORDERED: KETOROLAC TROMETHAMINE 30 MG/ML (IVP) VIAL IVP ONE (12:15)
[2017-03-07] MEDS ORDERED: ONDANSETRON HCL 4 MG/2 ML VIAL IVP ONE (12:15)
[2017-03-07] MEDS ORDERED: SODIUM CHLOR 0.9% 1000 ML INJ 1,000 ML IV SCH (12:15)
[2017-03-07 12:38] VITALS: O2SAT 99
--- NOTE | 2017-03-07 12:46 | PD ---
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 It was time for her. To start and it started on time but the bleeding has continued. She stopped her control pills on Wednesday or Wednesday after the bleeding had stopped because she hasn't picked them up from the pharmacy. She reports going through 5-6 regular pads per day. She also reports abnormal vaginal discharge a few days prior to her vaginal bleeding. She is also complaining of right lower quadrant abdominal pain that started on Wednesday. She denies fever. Reports vomiting yesterday. Reports diarrhea this morning. Rates pain 9/10. Describes it as a sharp pain. She took 2 Midol for symptom management. Pain is worse with walking, laying down straight. A little better at rest. Denies history of abdominal surgeries. Allergies to penicillin. No Primary care provider. Denies significant past medical history. Has no other medical complaints. No other modifying factors or associated signs and symptoms. PFSH Past Medical History Autoimmune Disease: No Blood Disorders: No Anxiety: No Depression: No Cardiovascular Problems: No Diminished Hearing: No Genitourinary: No Musculoskeletal: No Neurologic: No Psychiatric: No Respiratory: No Sickle Cell Disease: No ?: Not LMP: JAN 2017 : 3 Para: 2 Past Surgical History Abdominal Surgery: No Cardiac Surgery: No Ear Surgery: No Endocrine Surgery: No Eye Surgery: No Genitourinary Surgery: No Gynecologic Surgery: No Neurologic Surgery: No Oral Surgery: No Thoracic Surgery: No Other Surgery: Yes Social History Alcohol Use: No Tobacco Use: Yes (1/2 ppd) Substance Use: No Allergies-Medications (Allergen,Severity, Reaction): Coded Allergies: penicillin G (Unverified Allergy, Severe, TONGUE SWELLS, 10/13/16) Reported Meds & Prescriptions Reported Meds & Active Scripts Active Flagyl (Metronidazole) 500 Mg Tab 500 Mg PO BID 7 Days Macrobid (Nitrofurantoin Monoh/Nitrofur Macro) 100 Mg Cap 100 Mg PO BID 7 Days Korbel (Hydrocodone-Acetaminophen) 5 Mg-325 Mg Tab 1 Tab PO Q4H PRN Sprintec 28 (Norgestimate-Ethinyl Estradiol) 0.25-35 mg-Mcg Tab 1 Tab PO DAILY Review of Systems Except as stated in HPI: all other systems reviewed are Neg Physical Exam Narrative GENERAL: Well-nourished, well-developed female patient, in no acute distress; afebrile, nontoxic-appearing SKIN: Warm and dry. HEAD: Atraumatic. Normocephalic. EYES: Pupils equal and round. No scleral icterus. No injection or drainage. ENT: Mucous membranes pink and moist. NECK: Trachea midline. No lymphadenopathy. CARDIOVASCULAR: Regular rate and rhythm. No murmur appreciated. RESPIRATORY: No accessory muscle use. Clear to auscultation. Breath sounds equal bilaterally. GASTROINTESTINAL: Abdomen soft, non-tender, nondistended. Bilateral pelvic region nontender to palpation. Hepatic and splenic margins not palpable. No guarding, rigidity, rebound tenderness. PELVIC: Exam done in the presence of a nurse. Speculum exam reveals edematous and nonerythematous cervix with dark red, foul smelling discharge. Cervical os has thick, clotted, tissue appearing, dark red drainage. Bimanual exam reveals no palpable masses or adnexa tenderness, no uterine tenderness. No cervical motion tenderness. BACK: No CVA tenderness. MUSCULOSKELETAL: No obvious deformities. No clubbing. No cyanosis. No edema. NEUROLOGICAL: Awake and alert. No obvious cranial nerve deficits. Motor grossly within normal limits. Normal speech. PSYCHIATRIC: Appropriate mood and affect; insight and judgment normal. Data Data Last Documented VS Vital Signs Date Time Temp Pulse Resp B/P (MAP) Pulse Ox O2 Delivery O2 Flow Rate FiO2 03/07/17 17:34 79 16 128/79 (95) 99 Room Air 03/07/17 16:30 98.5 Orders Orders Complete Blood Count With Diff (03/07/17 12:15) Comprehensive Metabolic Panel (03/07/17 12:15) Lipase (03/07/17 12:15) Prothrombin Time / Inr (Pt) (03/07/17 12:15) Act Partial Throm Time (Ptt) (03/07/17 12:15) Urinalysis - C+S If Indicated (03/07/17 12:15) Iv Access Insert/Monitor (03/07/17 12:15) Ecg Monitoring (03/07/17 12:15) Oximetry (03/07/17 12:15) Ondansetron Inj (Zofran Inj) (03/07/17 12:15) Sodium Chlor 0.9% 1000 Ml Inj (Ns 1000 M (03/07/17 12:15) Ketorolac Inj (Toradol Inj) (03/07/17 12:15) Ed Urine Pregnancytest Poc (03/07/17 12:15) Gc And Chlamydia Pcr (03/07/17 12:15) Wet Prep Profile (03/07/17 12:15) Beta Hcg (Quant/Titer) (03/07/17 12:52) Type And Screen (03/07/17 12:52) Blood Product Administration (03/07/17 12:55) Sodium Chlor 0.9% 250 Ml Inj (Ns 250 Ml (03/07/17 13:00) Rhogam Only (03/07/17 12:55) Blood Product Administration (03/07/17 12:55) Sodium Chlor 0.9% 250 Ml Inj (Ns 250 Ml (03/07/17 13:00) Potassium Chloride (Kcl) (03/07/17 13:45) Us Pelvis (Ques Pr/Ect)W Trans (03/07/17 ) Urine Culture (03/07/17 15:33) Ed Discharge Order (03/07/17 16:47) Ketorolac Inj (Toradol Inj) (03/07/17 17:00) Labs Laboratory Tests Test 03/07/17 12:40 03/07/17 15:33 White Blood Count 9.0 TH/MM3 Red Blood Count 4.38 MIL/MM3 Hemoglobin 13.4 GM/DL Hematocrit 39.3 % Mean Corpuscular Volume 89.8 FL Mean Corpuscular Hemoglobin 30.5 PG Mean Corpuscular Hemoglobin Concent 34.0 % Red Cell Distribution Width 12.7 % Platelet Count 268 TH/MM3 Mean Platelet Volume 9.9 FL Neutrophils (%) (Auto) 57.5 % Lymphocytes (%) (Auto) 26.0 % Monocytes (%) (Auto) 11.7 % Eosinophils (%) (Auto) 4.3 % Basophils (%) (Auto) 0.5 % Neutrophils # (Auto) 5.2 TH/MM3 Lymphocytes # (Auto) 2.3 TH/MM3 Monocytes # (Auto) 1.1 TH/MM3 Eosinophils # (Auto) 0.4 TH/MM3 Basophils # (Auto) 0.0 TH/MM3 CBC Comment DIFF FINAL Differential Comment Prothrombin Time 11.2 SEC Prothromb Time International Ratio 1.1 RATIO Activated Partial Thromboplast Time 27.2 SEC Clue Cells (Wet Prep) PRESENT Vaginal Trichomonas (Wet Prep) NONE SEEN Vaginal Yeast (Wet Prep) NONE SEEN Blood Urea Nitrogen 7 MG/DL Creatinine 0.83 MG/DL Random Glucose 97 MG/DL Total Protein 7.4 GM/DL Albumin 3.7 GM/DL Calcium Level 9.1 MG/DL Alkaline Phosphatase 96 U/L Aspartate Amino Transf (AST/SGOT) 21 U/L Alanine Aminotransferase (ALT/SGPT) 38 U/L Total Bilirubin 0.4 MG/DL Sodium Level 140 MEQ/L Potassium Level 3.0 MEQ/L Chloride Level 107 MEQ/L Carbon Dioxide Level 23.7 MEQ/L Anion Gap 9 MEQ/L Estimat Glomerular Filtration Rate 83 ML/MIN Lipase 158 U/L Human Chorionic Gonadotropin, Quant 218 MIU/ML Chlamydia trachomatis DNA (PCR) NOT DETECTED Neisseria gonorrhoeae DNA (PCR) NOT DETECTED Urine Color DARK-BROWN Urine Turbidity HAZY Urine pH 6.0 Urine Specific Dora 1.049 Urine Protein 300 mg/dL Urine Glucose (UA) TRACE mg/dL Urine Ketones 10 mg/dL Urine Occult Blood LARGE Urine Nitrite NEG Urine Bilirubin SMALL Urine Urobilinogen 4.0 MG/DL Urine Leukocyte Esterase TRACE Urine RBC 4 /hpf Urine WBC 20 /hpf Urine Squamous Epithelial Cells 25 /hpf Urine Uric Acid Crystals MOD /hpf Urine Hyaline Casts 29 /lpf Urine Mucus MANY /lpf Microscopic Urinalysis Comment CULTURE INDICATED MDM Medical Decision Making Medical Screen Exam Complete: Yes Emergency Medical Condition: Yes Medical Record Reviewed: Yes Differential Diagnosis Appendicitis, Urinary tract infection, cholelithiasis Narrative Course This is a 26-year-old female presents emergency Department with right lower quadrant abdominal pain and vaginal bleeding times one week. IV: Normal saline bolus, CBC, CMP, coags, lipase, urinalysis, UPT, CT abdomen/pelvis, Toradol, Zofran ordered. 1255: UPT positive. CT abdomen/pelvis canceled and pelvic ultrasound ordered. 1339: CBC unremarkable. Coags unremarkable. Potassium 3.0, otherwise CMP unremarkable. Lipase 158. Beta hCG 218. Positive clue cells. Negative Trichomonas and vaginal yeast. 40meq potassium chloride ordered. 1616: Urinalysis with signs of infection. Reflex to culture. 1641: Pelvic ultrasound concludes: No evidence of intrauterine . Ectopic cannot be excluded. If no intervention is planned followup examination is recommended. Discussed ultrasound findings with the patient. Discussed inevitable . Korbel, Flagyl and Macrobid prescribed for home. Instructed patient to return in 48 hours for beta hCG and repeat ultrasound. Patient verbalized understanding and agreement. Dr. Evans agrees with discharge and plan of care. Instructed patient to follow up with primary care provider. Patient verbalizes understanding and agreement with treatment plan. Patient is medically cleared and stable for discharge. Discussed reasons to return to the emergency department. Patient agrees with treatment plan. The patients vital signs are stable and the patient is stable for outpatient follow- up and treatment. Patient discharged home, stable and in no acute distress. Diagnosis Primary Impression: Inevitable Additional Impressions: Bacterial vaginosis Urinary tract infection Qualified Codes: N39.0 - Urinary tract infection, site not specified Referrals: [facility] Supervisor Testing Primary Care Physician Patient Instructions: Bacterial Vaginosis (ED), General Instructions, Urinary Tract Infection in (ED) Departure Forms: Tests/Procedures, Work Release Enter return to work date: Mar 10, 2017 Additional Instructions: Korbel as prescribed for pain Return to the emergency department in 48 hours for serum beta hCG and repeat ultrasound Med/Other Pt SpecificInfo: Prescription(s) given Scripts Metronidazole (Flagyl) 500 Mg Tab 500 MG PO BID for Infection for 7 Days, #14 TAB 0 Refills Prov: Stefanie Jin 03/07/17 Nitrofurantoin Monohydrate Macrocrystals (Macrobid) 100 Mg Cap 100 MG PO BID for Infection for 7 Days, #14 CAP 0 Refills Prov: Stefanie Jin 03/07/17 Hydrocodone-Acetaminophen (Korbel) 5 Mg-325 Mg Tab 1 TAB PO Q4H Y for PAIN, #15 TAB 0 Refills Prov: Stefanie Jin 03/07/17 Disposition: 01 DISCHARGE HOME Condition: Stable Stefanie Jin Mar 07, 2017 12:46
[2017-03-07] MEDS ORDERED: SODIUM CHLOR 0.9% 250 ML INJ 250 ML IV ONE ×2 (13:00)
[2017-03-07 13:08] LABS: AUTOMATED NEUTROPHIL # 5.2 TH/MM3 (1.8-7.7); BASOPHIL % 0.5 % (0.0-2.0); EOSINOPHIL # 0.4 TH/MM3 (0-0.4); EOSINOPHIL % 4.3 % (0.0-4.0); HEMATOCRIT 39.3 % (35.0-46.0); HEMOGLOBIN 13.4 GM/DL (11.6-15.3); LYMPHOCYTE # 2.3 TH/MM3 (1.0-4.8); MEAN CELL VOLUME 89.8 FL (80.0-100.0); MEAN CORPUSCULAR HEMOGLOBIN 30.5 PG (27.0-34.0); MEAN PLATELET VOLUME 9.9 FL (7.0-11.0); MONO % 11.7 % (0.0-8.0); MONOCYTE # 1.1 TH/MM3 (0-0.9); NEUT % 57.5 % (16.0-70.0); PLATELET COUNT 268 TH/MM3 (150-450); RED BLOOD COUNT 4.38 MIL/MM3 (4.00-5.30); RED CELL DISTRIBUTION WIDTH 12.7 % (11.6-17.2)
[2017-03-07 13:16] LABS: INTERNATIONAL NORMALIZED RATIO 1.1 RATIO; PROTHROMBIN TIME - PATIENT 11.2 SEC (9.8-11.6)
[2017-03-07 13:23] LABS: ALBUMIN 3.7 GM/DL (3.4-5.0); ALT (GPT) 38 U/L (10-53); AST (GOT) 21 U/L (15-37); BICARBONATE 23.7 MEQ/L (21.0-32.0); BLOOD UREA NITROGEN 7 MG/DL (7-18); CALCIUM 9.1 MG/DL (8.5-10.1); CHLORIDE 107 MEQ/L (98-107); CREATININE 0.83 MG/DL (0.50-1.00); GLOMERULAR FILTRATION RATE 83 ML/MIN (>89); GLUCOSE,RANDOM 97 MG/DL (74-106); LIPASE 158 U/L (73-393); SODIUM (NA) 140 MEQ/L (136-145)
[2017-03-07 13:26] LABS: ALKALINE PHOSPHATASE 96 U/L (45-117); TOTAL BILIRUBIN ADULT 0.4 MG/DL (0.2-1.0); TOTAL PROTEIN 7.4 GM/DL (6.4-8.2)
[2017-03-07] MEDS ORDERED: POTASSIUM CHLORIDE 20 MEQ CONTROLLED RELEASE TAB PO ONE (13:45)
[2017-03-07 16:05] LABS: BILIRUBIN, URINE SMALL (NEG); BLOOD, URINE LARGE (NEG); GLUCOSE,URINE TRACE mg/dL (NEG); HYALINE CAST, URINE 29 /lpf (RARE); KETONE, URINE 10 mg/dL (NEG); MUCUS URINE MANY /lpf (OCC); NITRITE,URINE NEG (NEG); SQUAMOUS EPITHELIAL CELL URINE 25 /hpf (0-5); URIC ACID CRYSTALS, URINE MOD /hpf; URINE COLOR DARK-BROWN (YELLW/STRAW); URINE LEUKOCYTE ESTERASE TRACE (NEG)
[2017-03-07 16:30] VITALS: BP 128/79; PULSE 78; RESP 18; TEMP 98.5; O2SAT 99
--- NOTE | 2017-03-07 16:33 | RADRPT ---
EXAM DATE/TIME: 03/07/2017 14:35 [place] COMPARISON: No previous studies available for comparison. INDICATIONS : Pelvic pain. LAB(S): Beta-hC MEDICAL HISTORY : . SURGICAL HISTORY : Orthopedic surgery, right knee. ENCOUNTER: Initial ACUITY: 1 week PAIN SCORE: 4/10 LOCATION: Right pelvis MEASUREMENTS: UTERUS: 7.9 x 4.2 x 5.4 cm ENDOMETRIAL STRIPE: 6 mm RIGHT OVARY: 2.2 x 1.8 x 1.5 cm LEFT OVARY: 3.7 x 2.3 x 2.3 cm FREE FLUID: Yes cul-de-sac. CROWN RUMP LENGTH: Not visualized. = WKS DAYS FHR: Not visualized. BPM FINDINGS: Intrauterine is not identified. There is free fluid present within the pelvis. Examination right ovary demonstrates a cystic area measuring 1.1 x 0.8 CM and ectopic cannot be exclude d. There is also a sac like structure in uterine fundus which could reflect early intrauterine pregna ncy or pseudo sac. The left ovary appears normal. CONCLUSION: 1. No evidence of intrauterine . Ectopic cannot be excluded. If no intervention is planned followup examination is recommended. Yovani Montemayor MD on March 07, 2017 at 16:25 Board Certified Radiologist. This report was verified electronically.
[2017-03-07] MEDS ORDERED: NORC5TAB PO (16:43)
[2017-03-07] MEDS ORDERED: MACR100C2 PO (16:46)
[2017-03-07] MEDS ORDERED: METR-1 PO (16:46)
[2017-03-07] MEDS ORDERED: KETOROLAC TROMETHAMINE 60 MG/2 ML (IM) VIAL IM ONE (17:00)
[2017-03-07 17:34] VITALS: BP 128/79; PULSE 79; RESP 16; O2SAT 99
== END 2017-03-07 17:55 | disposition home or self-care (01) ==
LOC: NEPD 11:56
DX: O03.9 Complete or unspecified spontaneous abortion without complication (principal); O23.41 Unspecified infection of urinary tract in pregnancy, first trimester; O23.591 Infection of other part of genital tract in pregnancy, first trimester; B96.89 Other specified bacterial agents as the cause of diseases classified elsewhere; N76.0 Acute vaginitis; R19.7 Diarrhea, unspecified; O99.331 Smoking (tobacco) complicating pregnancy, first trimester; Z34.91 Encounter for supervision of normal pregnancy, unspecified, first trimester
CPT/HCPCS: 76700; 76817; 80053; 81001; 83690; 84702; 84703; 85025; 85610; 85730; 86850; 86900; 86901; 87086; 87210; 87491; 87591; 90384; 96361; 96372; 96374; 96375; 99285; J1885; J2405; J7030; J2790

== ENCOUNTER 2017-03-09 08:24 | Emergency (ER) | payer MEDICAID ==
[~2017-03-09] VITALS: Ht 146.1 cm; Wt 63.5 kg
[~2017-03-09 08:24] MED LIST changes: +MACR100C2 PO; +METR-1 PO; +NORC5TAB PO
[2017-03-09 08:26] VITALS: BP 123/69; PULSE 76; RESP 14; TEMP 98.3; O2SAT 100
--- NOTE | 2017-03-09 09:22 | PD ---
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 She reports vaginal bleeding for the past month. She was seen and evaluated here and found to be with an equivocal ultrasound and Bactrim vaginosis on wet prep. She reports compliance with Macrobid Flagyl however reports persistent total body pain and vaginal bleeding. She denies abnormal discharge. Lortab was helpful at home however she reports not taking any this morning. PFSH Past Medical History Autoimmune Disease: No Blood Disorders: No Anxiety: No Depression: No Cardiovascular Problems: No Diminished Hearing: No Genitourinary: No Musculoskeletal: No Neurologic: No Psychiatric: No Respiratory: No Sickle Cell Disease: No ?: LMP: 02/12/17 : 3 Para: 2 Past Surgical History Abdominal Surgery: No Cardiac Surgery: No Ear Surgery: No Endocrine Surgery: No Eye Surgery: No Genitourinary Surgery: No Gynecologic Surgery: No Neurologic Surgery: No Oral Surgery: No Thoracic Surgery: No Other Surgery: Yes Social History Alcohol Use: No Tobacco Use: Yes (1.5 ppd ) Substance Use: No Allergies-Medications (Allergen,Severity, Reaction): Coded Allergies: penicillin G (Verified Allergy, Severe, TONGUE SWELLS, 03/09/17) Reported Meds & Prescriptions Reported Meds & Active Scripts Active Flagyl (Metronidazole) 500 Mg Tab 500 Mg PO BID 7 Days Macrobid (Nitrofurantoin Monoh/Nitrofur Macro) 100 Mg Cap 100 Mg PO BID 7 Days [place] (Hydrocodone-Acetaminophen) 5 Mg-325 Mg Tab 1 Tab PO Q4H PRN Sprintec 28 (Norgestimate-Ethinyl Estradiol) 0.25-35 mg-Mcg Tab 1 Tab PO DAILY Review of Systems Except as stated in HPI: all other systems reviewed are Neg Physical Exam Narrative GENERAL: 26-year-old female pleasant well-nourished well-developed SKIN: Warm and dry. HEAD: Atraumatic. Normocephalic. EYES: Pupils equal and round. No scleral icterus. No injection or drainage. ENT: No nasal bleeding or discharge. Mucous membranes pink and moist. NECK: Trachea midline. No JVD. CARDIOVASCULAR: Regular rate and rhythm. RESPIRATORY: No accessory muscle use. Clear to auscultation. Breath sounds equal bilaterally. GASTROINTESTINAL: Soft. Generalized nonspecific tenderness. MUSCULOSKELETAL: Extremities without clubbing, cyanosis, or edema. No obvious deformities. NEUROLOGICAL: Awake and alert. No obvious cranial nerve deficits. Motor grossly within normal limits. Five out of 5 muscle strength in the arms and legs. Normal speech. PSYCHIATRIC: Appropriate mood and affect; insight and judgment normal. Data Data Last Documented VS Vital Signs Date Time Temp Pulse Resp B/P (MAP) Pulse Ox O2 Delivery O2 Flow Rate FiO2 03/09/17 08:26 98.3 76 14 123/69 (87) 100 Orders Orders Beta Hcg (Quant/Titer) (03/09/17 08:46) Complete Blood Count With Diff (03/09/17 10:00) Comprehensive Metabolic Panel (03/09/17 10:00) Us Pelvis (Ques Pr/Ect)W Trans (03/09/17 ) Urinalysis - C+S If Indicated (03/09/17 10:00) Urine Culture (03/09/17 10:10) Ed Discharge Order (03/09/17 12:13) Labs Laboratory Tests Test 03/09/17 09:05 03/09/17 10:10 03/09/17 10:15 Human Chorionic Gonadotropin, Quant 159 MIU/ML Urine Color RED Urine Turbidity CLOUDY Urine pH 6.0 Urine Specific [place] 1.027 Urine Protein 30 mg/dL Urine Glucose (UA) NEG mg/dL Urine Ketones TRACE mg/dL Urine Occult Blood LARGE Urine Nitrite NEG Urine Bilirubin NEG Urine Urobilinogen 2.0 MG/DL Urine Leukocyte Esterase MOD Urine RBC 2 /hpf Urine WBC 19 /hpf Urine Squamous Epithelial Cells 60 /hpf Urine Uric Acid Crystals FEW /hpf Urine Bacteria RARE /hpf Urine Mucus MANY /lpf Microscopic Urinalysis Comment CULTURE INDICATED White Blood Count 9.4 TH/MM3 Red Blood Count 4.18 MIL/MM3 Hemoglobin 12.9 GM/DL Hematocrit 37.9 % Mean Corpuscular Volume 90.5 FL Mean Corpuscular Hemoglobin 30.7 PG Mean Corpuscular Hemoglobin Concent 33.9 % Red Cell Distribution Width 12.6 % Platelet Count 264 TH/MM3 Mean Platelet Volume 10.0 FL Neutrophils (%) (Auto) 58.1 % Lymphocytes (%) (Auto) 28.6 % Monocytes (%) (Auto) 8.5 % Eosinophils (%) (Auto) 4.2 % Basophils (%) (Auto) 0.6 % Neutrophils # (Auto) 5.4 TH/MM3 Lymphocytes # (Auto) 2.7 TH/MM3 Monocytes # (Auto) 0.8 TH/MM3 Eosinophils # (Auto) 0.4 TH/MM3 Basophils # (Auto) 0.1 TH/MM3 CBC Comment DIFF FINAL Differential Comment Blood Urea Nitrogen 6 MG/DL Creatinine 0.59 MG/DL Random Glucose 94 MG/DL Total Protein 6.7 GM/DL Albumin 3.2 GM/DL Calcium Level 8.8 MG/DL Alkaline Phosphatase 85 U/L Aspartate Amino Transf (AST/SGOT) 14 U/L Alanine Aminotransferase (ALT/SGPT) 25 U/L Total Bilirubin 0.2 MG/DL Sodium Level 143 MEQ/L Potassium Level 3.5 MEQ/L Chloride Level 111 MEQ/L Carbon Dioxide Level 26.3 MEQ/L Anion Gap 6 MEQ/L Estimat Glomerular Filtration Rate 123 ML/MIN [facility] Medical Decision Making Medical Screen Exam Complete: Yes Emergency Medical Condition: Yes Medical Record Reviewed: Yes Differential Diagnosis IUP, UTI, ectopic , ov torsion, appendicitis, TOA, cervicitis, BV, Trichomoniasis, ov cyst, hernia, mittelschmerz, pain from menstruation Narrative Course Patient will continue with the Flagyl and Macrobid The patient has a beta hCG of 159 today down from 218 Prior ultrasound that is stated ectopic cannot be excluded. Index of suspicion very low at the time of exam today. Prior to discharge the patient reported increasing pain. Repeat ultrasound ordered based on radiology interpretation. Repeat ultrasound fortunately more consistent with a corpus luteal cyst and normal progression of miscarriage. CBC & BMP Diagram 03/09/17 10:15 Total Protein 6.7 #, Albumin 3.2 L, Calcium Level 8.8, Alkaline Phosphatase 85, Aspartate Amino Transf (AST/SGOT) 14 L, Alanine Aminotransferase (ALT/SGPT) 25, Total Bilirubin 0.2 Patient has remained sleeping throughout most of the ER stay. At time of reassessment, 1:10 PM, complains of persistent pain. . Patient refused repeat examination and requested props discharge. Given the complaints of pain and refusal of exam discharge against medical advice will be required. The patient understands she can return any time. She is to continue Flagyl and Macrobid at home. Unfortunately possibility of undiagnosed appendicitis is a very real possibility however the patient refuses exam and demands to be discharged we cannot pursue that any further. Diagnosis Primary Impression: Left against medical advice Med/Other Pt SpecificInfo: No Change to Meds Disposition: 07 AGAINST MEDICAL ADVICE Condition: Stable Roosevelt Beltran MD Mar 09, 2017 09:22
[2017-03-09 10:36] LABS: AUTOMATED NEUTROPHIL # 5.4 TH/MM3 (1.8-7.7); BASOPHIL # 0.1 TH/MM3 (0-0.2); BASOPHIL % 0.6 % (0.0-2.0); EOSINOPHIL # 0.4 TH/MM3 (0-0.4); EOSINOPHIL % 4.2 % (0.0-4.0); HEMATOCRIT 37.9 % (35.0-46.0); HEMOGLOBIN 12.9 GM/DL (11.6-15.3); LYMPH % 28.6 % (9.0-44.0); LYMPHOCYTE # 2.7 TH/MM3 (1.0-4.8); MEAN CELL VOLUME 90.5 FL (80.0-100.0); MEAN CORPUSCULAR HEMOGLOBIN 30.7 PG (27.0-34.0); MEAN CORPUSCULAR HGB CONC 33.9 % (32.0-36.0); MONO % 8.5 % (0.0-8.0); MONOCYTE # 0.8 TH/MM3 (0-0.9); NEUT % 58.1 % (16.0-70.0); PLATELET COUNT 264 TH/MM3 (150-450); RED BLOOD COUNT 4.18 MIL/MM3 (4.00-5.30); RED CELL DISTRIBUTION WIDTH 12.6 % (11.6-17.2); WHITE BLOOD COUNT 9.4 TH/MM3 (4.0-11.0)
[2017-03-09 10:45] LABS: BACTERIA, URINE RARE /hpf; BILIRUBIN, URINE NEG (NEG); BLOOD, URINE LARGE (NEG); GLUCOSE,URINE NEG (NEG); KETONE, URINE TRACE mg/dL (NEG); MUCUS URINE MANY /lpf (OCC); NITRITE,URINE NEG (NEG); SQUAMOUS EPITHELIAL CELL URINE 60 /hpf (0-5); URIC ACID CRYSTALS, URINE FEW /hpf; URINE LEUKOCYTE ESTERASE MOD (NEG)
[2017-03-09 10:47] LABS: URINE COLOR RED (YELLW/STRAW)
[2017-03-09 10:57] LABS: ALBUMIN 3.2 GM/DL (3.4-5.0); ALT (GPT) 25 U/L (10-53); AST (GOT) 14 U/L (15-37); BICARBONATE 26.3 MEQ/L (21.0-32.0); BLOOD UREA NITROGEN 6 MG/DL (7-18); CALCIUM 8.8 MG/DL (8.5-10.1); CHLORIDE 111 MEQ/L (98-107); CREATININE 0.59 MG/DL (0.50-1.00); GLOMERULAR FILTRATION RATE 123 ML/MIN (>89); GLUCOSE,RANDOM 94 MG/DL (74-106); SODIUM (NA) 143 MEQ/L (136-145)
[2017-03-09 10:59] LABS: ALKALINE PHOSPHATASE 85 U/L (45-117); TOTAL BILIRUBIN ADULT 0.2 MG/DL (0.2-1.0); TOTAL PROTEIN 6.7 GM/DL (6.4-8.2)
--- NOTE | 2017-03-09 11:55 | RADRPT ---
EXAM DATE/TIME: 03/09/2017 10:48 [facility] COMPARISON: US PELVIS (QUEST PREG/ECTOPIC) W/TRANSVAG, March 07, 2017, 14:35. INDICATIONS : Right pelvic pain. LAB(S): Beta-hC MEDICAL HISTORY : . SURGICAL HISTORY : Orthopedic surgery, right knee. ENCOUNTER: Subsequent ACUITY: 3 days PAIN SCORE: 6/10 LOCATION: Bilateral pelvis MEASUREMENTS: UTERUS: 9.1 x 3.9 x 5.7 cm ENDOMETRIAL STRIPE: 5 mm RIGHT OVARY: 3.7 x 2.3 x 2.7 cm LEFT OVARY: 3.0 x 2.3 x 2.4 cm FREE FLUID: Yes posterior cul-de-sac. CROWN RUMP LENGTH: Non-visualized = WKS DAYS FHR: Non-visualized BPM FINDINGS: UTERUS: The myometrium has homogeneous echotexture without mass. Very small amount of fluid in the cul-de-sa c the endometrial canal, decreased from prior. No gestational sac or pole identified. RIGHT OVARY: Multiple small follicular type cysts. Complex area adjacent to the right ovary measures 2.2 x 1.2 x 1 .7 cm and could represent the ruptured corpus luteum. LEFT OVARY: Ovary contains no mass or significant cystic lesion. MISCELLANEOUS: Trace free fluid, diminished from prior. CONCLUSION: 1. Small amount of fluid in the endometrial canal with trace fluid, both of which are decreased from prior. In conjunction with the following quantitative beta hCG, findings are most characteristic of a n in progress. 2. Complex hypoechoic area adjacent to the right ovary is nonspecific but overtly benign and may repr esent the ruptured corpus. Antoni Shepard MD on March 09, 2017 at 11:45 Board Certified Radiologist. This report was verified electronically.
== END 2017-03-09 13:39 | disposition left against medical advice (07) ==
LOC: NEPE 08:24
DX: O46.90 Antepartum hemorrhage, unspecified, unspecified trimester (principal); R82.71 Bacteriuria; Z3A.00 Weeks of gestation of pregnancy not specified
CPT/HCPCS: 76700; 76817; 80053; 81001; 84702; 85025; 86403; 87077; 87086; 87186; 99284

== ENCOUNTER 2017-04-11 20:48 | Emergency (ER) | payer OTHER ==
[~2017-04-11] VITALS: Ht 146.1 cm; Wt 71.0 kg
[2017-04-11 20:49] VITALS: BP 133/85; PULSE 104; RESP 16; TEMP 98.4; O2SAT 100
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
[2017-04-11] MEDS ORDERED: KETO10 PO (23:17)
[2017-04-11] MEDS ORDERED: CYCL10TA PO (23:17)
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
== END 2017-04-12 00:25 | disposition home or self-care (01) ==
LOC: NEPD 20:48
DX: S80.02XA Contusion of left knee, initial encounter (principal); S13.9XXA Sprain of joints and ligaments of unspecified parts of neck, initial encounter; S23.3XXA Sprain of ligaments of thoracic spine, initial encounter; V49.60XA Unspecified car occupant injured in collision with unspecified motor vehicles in traffic accident, initial encounter; R51 Headache; F17.200 Nicotine dependence, unspecified, uncomplicated; F12.90 Cannabis use, unspecified, uncomplicated
CPT/HCPCS: 70450; 72040; 72072; 73564; 84703; 99284

== ENCOUNTER 2017-07-27 00:15 | Emergency (ER) | payer MEDICAID, OTHER ==
[~2017-07-27 00:15] MED LIST changes: +CYCL10TA PO; +KETO10 PO
[2017-07-27 00:17] VITALS: BP 110/82; PULSE 90; RESP 18; TEMP 98.3; O2SAT 99
[2017-07-27] MEDS ORDERED: SODIUM CHLOR 0.9% 1000 ML INJ 1,000 ML IV ONE (00:45)
--- NOTE | 2017-07-27 00:49 | PD ---
HPI Chief Complaint: Abdominal Pain Time Seen by Provider: 00:26 Travel History International Travel<30 days: No Contact w/Intl Traveler<30days: No Traveled to known affect area: No History of Present Illness HPI The patient is a 27 year old female who presents to the [facility] emergency department with a history of abdominal pain and back pain that began 3 days ago. The patient reports that the pain has been coming and going up until 24 hours ago when it became constant. The patient reports that it is an aching sensation like cramping. She denies any alleviating or aggravating. The patient reports that it has been associated with heavy vaginal bleeding. The patient was concerned that she may be having a miscarriage as she had similar symptoms when she had a miscarriage in January 2017. She is a with 3 prior vaginal deliveries without complication. She reports that she has had 2 prior miscarriages. She did not take a test prior to arrival. She denies being on any type of control or using condoms for prevention of . She denies having any other vaginal discharge. She reports that she has had some dysuria with urinary frequency. She denies having any urinary urgency. She denies having any known fevers. She denies having nausea or vomiting. She reports that over the last 2 days she has had some diarrhea 3-4 times per day. She reports that the stool is loose and brown in color. She denies having any mucus or blood in her stool. On review of systems otherwise, the patient denies having any known recent fevers, cough or congestion, neck pain, chest pain, shortness of breath, or neurologic symptoms. LMP: Last normal menstrual cycle was at the beginning of June. [facility] Past Medical History Narrative Medical The patient's past medical history is significant for recurrent urinary tract infections, sciatica. Autoimmune Disease: No Blood Disorders: No Anxiety: No Depression: No Cardiovascular Problems: No Diminished Hearing: No Genitourinary: No Musculoskeletal: Yes (SCIATICA) Neurologic: No Psychiatric: No Respiratory: No Immunizations Current: Yes Sickle Cell Disease: No ?: Unknown : 3 Para: 2 Past Surgical History Narrative Surgical The patient's past surgical history is reportedly none. Abdominal Surgery: No Cardiac Surgery: No Ear Surgery: No Endocrine Surgery: No Eye Surgery: No Genitourinary Surgery: No Gynecologic Surgery: No Neurologic Surgery: No Oral Surgery: No Thoracic Surgery: No Other Surgery: Yes Social History Alcohol Use: No Tobacco Use: Yes (/2 PPD) Substance Use: Yes (WEED) Allergies-Medications (Allergen,Severity, Reaction): Coded Allergies: penicillin G (Verified Allergy, Severe, TONGUE SWELLS, 07/27/17) Reported Meds & Prescriptions Reported Meds & Active Scripts Active EC-Naprosyn (Naproxen) 500 Mg Tabdr 500 Mg PO BID PRN Review of Systems Except as stated in HPI: all other systems reviewed are Neg General / Constitutional: No: Fever Eyes: No: Visual changes HENT: No: Headaches Cardiovascular: No: Chest Pain or Discomfort Respiratory: No: Shortness of Breath Gastrointestinal: Positive: Diarrhea, Abdominal Pain, Changes in Bowel Habits, No: Nausea, Vomiting, Hematochezia, Indigestion, Loss of Appetite Genitourinary: Positive: Pelvic Pain, Vaginal Bleeding, No: Dysuria Musculoskeletal: Positive: Myalgias, Pain Skin: No Rash Neurologic: No: Weakness, Focal Abnormalities, Change in Mentation, Slurred Speech, Sensory Disturbance Psychiatric: No: Depression Endocrine: No: Polydipsia Hematologic/Lymphatic: No: Easy Bruising Physical Exam Narrative General: The patient is a well-developed well-nourished female in no acute distress. Head and Neck exam: Head is normocephalic atraumatic. Eyes: EOMI, pupils are equal round and reactive to light. Nose: Midline septum with pink mucous membranes Mouth: Dentition unremarkable. Moist mucus membranes. Posterior oropharynx is not erythematous. No tonsillar hypertrophy. Uvula midline. Airway patent. Neck: No palpable lymphadenopathy. No nuchal rigidity. No thyromegaly. Cardiovascular: Regular rate and rhythm without murmurs, gallops, or rubs. No pulse deficit to the extremities on simultaneous auscultation and palpation of her radial artery. Lungs: Clear to auscultation bilaterally. No wheezes, rhonchi, or rales. Abdomen: Soft, with reported suprapubic tenderness on palpation, no other tenderness on palpation of the other quadrants of the abdomen. Negative Fontanez sign. No tenderness on palpation of McBurney's point. Normal bowel sounds are audible. No guarding, rebound, or rigidity. Extremities: No clubbing, cyanosis, or edema. 2+ pulses in all 4 extremities. No calf tenderness on palpation. Back: No spinous process tenderness to palpation. The patient reports having bilateral CVA tenderness on palpation. She reports that this is chronic and related to her sciatica. Neurologic Exam: Grossly nonfocal. Skin Exam: No rash noted. Intact skin that is warm and dry. Gynecologic exam: The patient was placed in the dorsal lithotomy position. Her external genitalia were examined. She had no evidence of rash or lesions. The speculum was placed into her vagina and the cervix was identified. She had a mild amount of vaginal bleeding, blood pooling in the posterior vaginal wall from the cervical os. No cervical friability. On Bimanual exam: she has no cervical motion tenderness. No adnexal tenderness or prominence noted on palpation. No uterine tenderness or enlargement noted on palpation. Data Data Last Documented VS Vital Signs Date Time Temp Pulse Resp B/P (MAP) Pulse Ox O2 Delivery O2 Flow Rate FiO2 07/27/17 00:17 98.3 90 18 110/82 (91) 99 Orders Orders Complete Blood Count With Diff (07/27/17 00:38) Comprehensive Metabolic Panel (07/27/17 00:38) Lipase (07/27/17 00:38) Urinalysis - C+S If Indicated (07/27/17 00:38) Beta Hcg (Quant/Titer) (07/27/17 00:38) Magnesium (Mg) (07/27/17 00:38) Thyroid Stimulating Hormone (07/27/17 00:38) Wet Prep Profile (07/27/17 00:38) Gc And Chlamydia Pcr (07/27/17 00:38) Iv Access Insert/Monitor (07/27/17 00:38) Ecg Monitoring (07/27/17 00:38) Oximetry (07/27/17 00:38) Ed Urine Pregnancytest Poc (07/27/17 00:38) Sodium Chlor 0.9% 1000 Ml Inj (Ns 1000 M (07/27/17 00:45) Urine Culture (07/27/17 00:45) Potassium Chloride (Kcl) (07/27/17 02:30) Ketorolac Inj (Toradol Inj) (07/27/17 02:30) Ed Discharge Order (07/27/17 03:16) Labs Laboratory Tests Test 07/27/17 00:40 07/27/17 00:45 07/27/17 02:20 White Blood Count 11.4 TH/MM3 Red Blood Count 4.03 MIL/MM3 Hemoglobin 12.3 GM/DL Hematocrit 36.4 % Mean Corpuscular Volume 90.3 FL Mean Corpuscular Hemoglobin 30.5 PG Mean Corpuscular Hemoglobin Concent 33.7 % Red Cell Distribution Width 13.0 % Platelet Count 243 TH/MM3 Mean Platelet Volume 8.8 FL Neutrophils (%) (Auto) 57.7 % Lymphocytes (%) (Auto) 30.1 % Monocytes (%) (Auto) 7.4 % Eosinophils (%) (Auto) 4.2 % Basophils (%) (Auto) 0.6 % Neutrophils # (Auto) 6.6 TH/MM3 Lymphocytes # (Auto) 3.4 TH/MM3 Monocytes # (Auto) 0.8 TH/MM3 Eosinophils # (Auto) 0.5 TH/MM3 Basophils # (Auto) 0.1 TH/MM3 CBC Comment DIFF FINAL Differential Comment Blood Urea Nitrogen 5 MG/DL Creatinine 0.71 MG/DL Random Glucose 111 MG/DL Total Protein 6.9 GM/DL Albumin 3.4 GM/DL Calcium Level 8.0 MG/DL Magnesium Level 1.9 MG/DL Alkaline Phosphatase 65 U/L Aspartate Amino Transf (AST/SGOT) 18 U/L Alanine Aminotransferase (ALT/SGPT) 30 U/L Total Bilirubin 0.2 MG/DL Sodium Level 141 MEQ/L Potassium Level 3.0 MEQ/L Chloride Level 108 MEQ/L Carbon Dioxide Level 24.8 MEQ/L Anion Gap 8 MEQ/L Estimat Glomerular Filtration Rate 99 ML/MIN Lipase 192 U/L Thyroid Stimulating Hormone 3rd Gen 0.573 uIU/ML Human Chorionic Gonadotropin, Quant LESS THAN 1 MIU/ML Urine Color YELLOW Urine Turbidity HAZY Urine pH 5.5 Urine Specific [place] 1.010 Urine Protein 30 mg/dL Urine Glucose (UA) NEG mg/dL Urine Ketones NEG mg/dL Urine Occult Blood LARGE Urine Nitrite NEG Urine Bilirubin NEG Urine Urobilinogen LESS THAN 2.0 MG/DL Urine Leukocyte Esterase LARGE Urine RBC 8 /hpf Urine WBC 11 /hpf Urine Squamous Epithelial Cells 26 /hpf Urine Bacteria FEW /hpf Urine Mucus FEW /lpf Microscopic Urinalysis Comment CULTURE INDICATED Clue Cells (Wet Prep) NONE SEEN Vaginal Trichomonas (Wet Prep) NONE SEEN Vaginal Yeast (Wet Prep) NONE SEEN MDM Medical Decision Making Medical Screen Exam Complete: Yes Emergency Medical Condition: Yes Medical Record Reviewed: Yes Differential Diagnosis Ectopic , versus threatened miscarriage, versus dysmenorrhea, versus menometrorrhagia Narrative Course During the course of the patient's emergency department visit, the patient's history, examination, and differential diagnosis were reviewed with the patient. The patient was placed on a groundwater monitoring technician with oximetry and frequent blood pressure monitoring. The patient had IV access obtained and blood work sent for analysis. The patient was initially provided normal saline 1 L IV fluid bolus. Toradol for pain. The patient's laboratory studies were reviewed and remarkable for a white count of 11.4, hemoglobin 12.3, platelets 243 with 4.2 eosinophils, CMP is remarkable for potassium of 3.0 which will be supplemented orally, chloride 108, BUN 5, glucose 111, calcium 8.0, TSH 0.57, quantitative beta-hCG is less than 1, lipase 192. Urinalysis shows 30 protein large blood, large leukocyte esterase, 8 RBCs, 11 WBCs, 26 squamous epithelial cells to suggest contaminant, few bacteria, culture indicated. The patient's wet prep was negative. The patient will be discharged home with a prescription for Naprosyn. The patient was encouraged to use condoms to prevent in the transmission of sexually transmitted infections. The patient is instructed to follow-up with a aix architect if she continues to have irregular vaginal bleeding. The patient is resting comfortably and feels better, is alert and in no distress. The patient's results and examination findings were discussed with the patient. The repeat examination is unremarkable and benign. The history, exam, diagnostic testing, and current condition do not suggest any significant pathology to warrant further testing, continued ED treatment, admission, or surgical evaluation at this point. The vital signs have been stable. The patient does not have uncontrollable pain, intractable vomiting, or other significant symptoms. The patient's condition is stable and appropriate for discharge. The patient will pursue further outpatient evaluation with a primary care physician or other designated or consulting physician as indicated in the discharge instructions. The patient is instructed to report back to the emergency department immediately for reexamination in the mean time if he/ she develops any new or worsening signs or symptoms. The patient expressed understanding and was agreeable with this plan. Diagnosis Primary Impression: Metrorrhagia Referrals: Esdras Manning MD 1 week [facility] 1 week Patient Instructions: Dysfunctional Uterine Bleeding (ED), General Instructions Scripts Naproxen DR (EC-Naprosyn) 500 Mg Tabdr 500 MG PO BID Y for PAIN GREATER THAN 5, #10 TAB 0 Refills Prov: Alona Quintero MD 07/27/17 Disposition: 01 DISCHARGE HOME Condition: Stable Alona Quintero MD July 27, 2017 00:49
[2017-07-27 00:53] LABS: AUTOMATED NEUTROPHIL # 6.6 TH/MM3 (1.8-7.7); BASOPHIL # 0.1 TH/MM3 (0-0.2); BASOPHIL % 0.6 % (0.0-2.0); EOSINOPHIL # 0.5 TH/MM3 (0-0.4); EOSINOPHIL % 4.2 % (0.0-4.0); HEMATOCRIT 36.4 % (35.0-46.0); HEMOGLOBIN 12.3 GM/DL (11.6-15.3); LYMPH % 30.1 % (9.0-44.0); LYMPHOCYTE # 3.4 TH/MM3 (1.0-4.8); MEAN CELL VOLUME 90.3 FL (80.0-100.0); MEAN CORPUSCULAR HEMOGLOBIN 30.5 PG (27.0-34.0); MEAN CORPUSCULAR HGB CONC 33.7 % (32.0-36.0); MEAN PLATELET VOLUME 8.8 FL (7.0-11.0); MONO % 7.4 % (0.0-8.0); MONOCYTE # 0.8 TH/MM3 (0-0.9); NEUT % 57.7 % (16.0-70.0); PLATELET COUNT 243 TH/MM3 (150-450); RED BLOOD COUNT 4.03 MIL/MM3 (4.00-5.30); WHITE BLOOD COUNT 11.4 TH/MM3 (4.0-11.0)
[2017-07-27 00:57] LABS: BACTERIA, URINE FEW /hpf; BILIRUBIN, URINE NEG (NEG); BLOOD, URINE LARGE (NEG); GLUCOSE,URINE NEG (NEG); KETONE, URINE NEG (NEG); MUCUS URINE FEW /lpf (OCC); NITRITE,URINE NEG (NEG); PH, URINE 5.5 (5.0-8.5); SQUAMOUS EPITHELIAL CELL URINE 26 /hpf (0-5); URINE COLOR YELLOW (YELLW/STRAW); URINE LEUKOCYTE ESTERASE LARGE (NEG)
[2017-07-27 01:14] LABS: ALBUMIN 3.4 GM/DL (3.4-5.0); ALT (GPT) 30 U/L (10-53); AST (GOT) 18 U/L (15-37); BICARBONATE 24.8 MEQ/L (21.0-32.0); BLOOD UREA NITROGEN 5 MG/DL (7-18); CHLORIDE 108 MEQ/L (98-107); CREATININE 0.71 MG/DL (0.50-1.00); GLOMERULAR FILTRATION RATE 99 ML/MIN (>89); GLUCOSE,RANDOM 111 MG/DL (74-106); MAGNESIUM 1.9 MG/DL (1.5-2.5); SODIUM (NA) 141 MEQ/L (136-145)
[2017-07-27 01:25] LABS: ALKALINE PHOSPHATASE 65 U/L (45-117); TOTAL BILIRUBIN ADULT 0.2 MG/DL (0.2-1.0); TOTAL PROTEIN 6.9 GM/DL (6.4-8.2)
[2017-07-27] MEDS ORDERED: POTASSIUM CHLORIDE 20 MEQ CONTROLLED RELEASE TAB PO ONE (02:30)
[2017-07-27] MEDS ORDERED: KETOROLAC TROMETHAMINE 30 MG/ML (IVP) VIAL IV PUSH ONE (02:30)
[2017-07-27] MEDS ORDERED: NAPR-810 PO (03:16)
[2017-07-27 03:35] VITALS: BP 98/52
== END 2017-07-27 03:38 | disposition home or self-care (01) ==
LOC: NEPE 00:15
DX: N92.1 Excessive and frequent menstruation with irregular cycle (principal); F12.90 Cannabis use, unspecified, uncomplicated; F17.200 Nicotine dependence, unspecified, uncomplicated; R19.7 Diarrhea, unspecified
CPT/HCPCS: 80053; 81001; 83690; 83735; 84443; 84702; 84703; 85025; 87077; 87086; 87186; 87210; 87491; 87591; 96361; 96374; 99284; J1885; J7030